=== PATIENT | female | born 1985 | race Asian ===

== ENCOUNTER 2021-12-05 09:04 | Emergency (ER) | payer SELFPAY ==
[~2021-12-05] VITALS: Ht 152.4 cm; Wt 59.1 kg
[2021-12-05 09:06] VITALS: BP 112/89
--- NOTE | 2021-12-05 09:25 | NUR ---
potential allergic reaction s/p beetle bite
[2021-12-05] MEDS ORDERED: triamcinolone acet 0.1% cream 15gm TP STA (10:10)
[2021-12-05] MEDS ORDERED: EPIN0.3P3 IM (10:13)
== END 2021-12-05 10:35 | disposition home or self-care (01) ==
LOC: ER 09:05
DX: S90.861A Insect bite (nonvenomous), right foot, initial encounter (principal); W57.XXXA Bitten or stung by nonvenomous insect and other nonvenomous arthropods, initial encounter; Y93.89 Activity, other specified; Y92.89 Other specified places as the place of occurrence of the external cause; Y99.8 Other external cause status
CPT/HCPCS: 99282